=== PATIENT | female | born 1960 | race Caucasian/White ===

== ENCOUNTER 2018-03-12 02:03 | Inpatient (IN) | payer OTHER ==
[~2018-03-12] VITALS: Ht 165.1 cm; Wt 92.1 kg
[~2018-03-12 02:03] MED LIST: CRESTOR20 M2 PO; FLUOXETINE HCL20 M2 PO; LEVOTHYROXINE100 MC1 PO; LEVOTHYROXINE88 MCG PO
--- NOTE | 2018-03-12 12:58 | Admission Core Measures ---
Acute Coronary Syndrome (CM) ACS Core Measures Acute Coronary Syndrome Diagnosis No Congestive Heart Failure (NEW) CHF Core Measures Congestive Heart Failure Diagnosis No Cerebrovascular Accident CVA Core Measures CVA/TIA Diagnosis No Venous Thromboembolism VTE Core Og (View Protocol) VTE Risk Factors Surgery No Mechanical VTE Prophylaxis d/t N/A MechProphylax Ordered No VTE Pharm Prophylaxis d/t NA PharmProphylax ordered Problem List As ranked by this Provider includes Assessment & Plan 1. Unilateral primary osteoarthritis, left hip HOME MEDS Home Med List Fluoxetine HCl 20 MG CAPSULE 1 CAP PO DAILY DEPRESSION (Reported) Levothyroxine Sodium 100 MCG TABLET 1 TAB PO DAILY HYPOTHYROID (Reported) Levothyroxine Sodium 88 MCG TABLET 1 TAB PO DAILY HYPOTHYROID (Reported) Rosuvastatin Calcium (Crestor) 20 MG TABLET 1 TAB PO DAILY CHOLESTEROL ( Reported)
[2018-03-12] MEDS ORDERED: PRILOSEC OTC20 M1 PO (13:00)
[2018-03-12] MEDS ORDERED: ASPIRIN EC81 M1 PO (13:00)
[2018-03-12] MEDS ORDERED: DILAUDID2 M1 PO (13:00)
[2018-03-12] MEDS ORDERED: MIRALAX17 G1 PO (13:00)
[2018-03-12] MEDS ORDERED: COLACE100 M1 PO (13:00)
--- NOTE | 2018-03-12 13:03 | Patient Discharge Instructions ---
Discharge Instructions General Discharge Information You were seen/treated for: Left hip pain related to unilateral primary osteoarthritis You had these procedures: Left total hip replacement Watch for these problems: Increasing pain despite the use of pain medication Increasing redness, warmth or swelling Drainage of any type from incision Inability to bear weight on operative leg Persistent nausea and vomiting Fever greater than 101.5 degrees Do not soak the wound: Yes No bath, but you may shower: Yes Other wound care: Please keep wound clean and dry. No ointments or lotions of any type on or near incision at any time. No exceptions. Your dressing will be changed by your nurse on the second day after your surgery. Daily dry dressing changes are recommended each day thereafter. Do not soak your wound in a bath at any time until otherwise indicated by your surgeon. You may shower, please dry wound immediately after shower with a clean towel. Special Instructions: Aspirin: You are taking this medication to help prevent blood clot formation. Please take with food to protect your stomach lining. Please take as directed. Constipation: Pain medication can cause constipation. Dr. Laird has recommended that you take Colace and miralax each day. You may discontinue this medication if you develop loose stool or diarrhea. If you wish to continue this medication, it is available over the counter. If you are unable to move your bowels after several days, if you are unable to pass gas and are developing bloating, nausea, or vomiting as a result, please contact your doctor. Diet Continue normal diet: Yes Activity Full Activity/No Limits: No Activity Self Limited: Yes Pounds, do NOT lift more than: 10 Activity Limited to: Weight bear as tolerated Acute Coronary Syndrome Inclusion Criteria At DC or during hospital stay patient has or had the following: ACS DIAGNOSIS No Discharge Core Measures Meds if any: Prescribed or Continued at Discharge Meds if any: NOT Prescribed or Continued at Discharge Congestive Heart Failure Inclusion Criteria At DC or during hospital stay patient has or had the following: CHF DIAGNOSIS No Discharge Core Measures Meds if any: Prescribed or Continued at Discharge Meds if any: NOT Prescribed or Continued at Discharge Cerebrovascular accident Inclusion Criteria At DC or during hospital stay patient has or had the following: CVA/TIA Diagnosis No Discharge Core Measures Meds if any: Prescribed or Continued at Discharge Meds if any: NOT Prescribed or Continued at Discharge Venous thromboembolism Inclusion Criteria VTE Diagnosis No VTE Type NONE VTE Confirmed by (Test) NONE Discharge Core Measures - Per Current guidelines, there needs to be overlap - treatment for the first 5 days of Warfarin therapy. - If discharged on Warfarin prior to 5 days of - overlap therapy, the patient will need to be - assessed for post discharge needs including - *Post discharge parental anticoagulation - *Warfarin and/or parental anticoagulation education - *Follow up date to check INR post discharge At least 5 days overlap therapy as Inpatient No Meds if any: Prescribed or Continued at Discharge Note: Overlap Therapy is Warfarin and Anticoagulant Meds if any: NOT Prescribed or Continued at Discharge
--- NOTE | 2018-03-12 13:05 | Surgical Discharge Summary ---
Visit Information Visit Dates Admission Date: 03/12/18 Discharge Date: 03/13/18 History of Present Illness Chief Complaint: Left hip pain related to unilateral primary osteoarthritis Surgical History Pertinent Surgical History: non-contributory Review of Systems: See H&P Hospital Course Course Attending Physician: Rommel Laird MD Primary Care Physician: Unknown Hospital Course: Patient was admitted to the hospital for an elective total joint replacement. The procedure was tolerated well and patient was transferred to a general surgical floor. Diet was advanced and tolerated. The patient was evaluated and treated by physical therapy. At the time of hospital discharge, the vital signs were stable, neurovascular status was intact, and pain was controlled with the use of oral pain medications. Allergies: Coded Allergies: amoxicillin (From AUGMENTIN) (RASH 03/11/18) clavulanic acid (From AUGMENTIN) (RASH 03/11/18) Disposition Summary Disposition Principal Diagnosis: Left hip unilateral primary osteoarthritis Additional Diagnosis: None Discharge Disposition: home health services Discharge Instructions General Discharge Information Code Status: Full Code Patient's Diet: Regular, advance as tolerated Patient's Activity: WBAT Follow-Up Instructions/Appts: Follow up with Dr. Laird in 6 weeks from date of surgery. Please call office to arrange &/or confirm this appointment. Medications at Discharge Discharge Medications: Continue taking these medications: Fluoxetine HCl (Fluoxetine HCl) 20 MG CAPSULE 1 Capsule ORAL DAILY Comments: LAST GIVEN 03/13/18 @ 0900 Levothyroxine Sodium (Levothyroxine Sodium) 100 MCG TABLET 1 Tablet ORAL DAILY Instructions: ALTERNATE WITH 88 MCG Levothyroxine Sodium (Levothyroxine Sodium) 88 MCG TABLET 1 Tablet ORAL DAILY Instructions: ALTERNATE WITH 100 MCG Comments: LAST GIVEN 03/13/18 @ 0900 Rosuvastatin Calcium (Crestor) 20 MG TABLET 1 Tablet ORAL DAILY Start taking the following new medications: Aspirin (Ecotrin*) 81 MG TABLET.DR 1 Tablet ORAL TWICE DAILY Qty = 60 No Refills Comments: LAST GIVEN 03/13/18 @ 0900 Docusate Sodium (Colace) 100 MG CAPSULE 1 Capsule ORAL TWICE DAILY Qty = 14 No Refills Instructions: DISCONTINUE USE IF YOU DEVELOP LOOSE STOOL OR DIARRHEA Comments: LAST GIVEN 03/13/18 @ 0900 Polyethylene Glycol 3350 (Miralax) 17 GRAM POWD.PACK 1 Packet ORAL DAILY Qty = 7 No Refills Instructions: dissolve in water, DISCONTINUE USE IF YOU DEVELOP LOOSE STOOL OR DIARRHEA Comments: LAST GIVEN 03/12/18 @ 1400 Omeprazole Magnesium (Prilosec Otc) 20 MG TABLET.DR 1 Tablet ORAL DAILY Qty = 30 No Refills Comments: LAST GIVEN 03/13/18 @ 0900 Hydromorphone HCl (Dilaudid) 2 MG TABLET 1-2 Tablet ORAL EVERY 4-6 HOURS NEEDED as needed for PAIN Qty = 36 No Refills Comments: NOT GIVEN
--- NOTE | 2018-03-12 15:13 | RADIOLOGY REPORT ---
EXAMINATION: XR HIP, LEFT CLINICAL INFORMATION: Left hip replacement. COMPARISON: None TECHNIQUE: Two views of the left hip. FINDINGS: Status post left hip replacement . Orthopedic components in position. There is air in the soft tissues from recent surgery around the hip. Air-fluid level is seen within the hip joint on the shoot through lateral view. IMPRESSION: Status post left hip replacement.
[2018-03-12 15:45] VITALS: BP 136/72
--- NOTE | 2018-03-12 15:48 | PN- Orthopedic ---
Subjective Subjective: POST-OP NOTE No complaints. Denies pain. Tolerating diet. No nausea. Denies dizziness. No shortness of breath. No chest pains. Ready to get up with PT shortly. Objective Vital Signs and I&Os Intake & Output 03/12 1600 03/12 0800 03/12 0000 03/11 1600 03/11 0800 03/11 0000 Intake Total Output Total Balance Patient 203 lb Weight PACU flowsheet reviewed, vss Physical Exam: General - alert & oriented x 3. comfortable. no acute distress. Lungs - clear bilaterally. no w/r/r. Cardiac - s1s2. reg. Abdomen - soft. nontender. Extremities - warm bilaterally. left hip dressing c/d/i. ice pack in place. no drains. no hematoma. calves soft and nontender b/l. athrombics in place. nvi. Current Medications: Current Medications Sig/Lisbeth Start time Last Medication Dose Route Stop Time Status Admin Acetaminophen 0 .STK-MED ONE 03/12 1046 DC PO Cefazolin Sodium 2,000 MG ONCE 03/12 0000 NR IV 03/12 2359 Oxycodone HCl 0 .STK-MED ONE 03/12 1046 DC PO Assessment/Plan Assessment/Plan This 57 year old female with hx hld, hypothyroidism, depression, who is POD#0 s/ p left total hip replacement for primary osteoarthritis advance diet as tolerated pain medication as ordered maranda-operative ancef x 2 doses asa bid - dvt ppx PT eval, wbat bowel regime ordered home meds ordered f/u AM labs dressing change POD#2 d/c planning will d/w Core Measures Venous Thromboembolism VTE Risk Factors Surgery No Mechanical VTE Prophylaxis d/t N/A MechProphylax Ordered No VTE Pharm Prophylaxis d/t NA PharmProphylax ordered
--- NOTE | 2018-03-12 16:51 | Operative Report ---
Operative/Inv Procedure Report Surgery Date: 03/12/18 Name of Procedure: Left total hip replacement Pre-Operative Diagnosis: Primary left hip DJD Post-Operative Diagnosis: Same Estimated Blood Loss: 250 Surgeon/Bicycle Taxi Driver: Sisi SLOAN,Rommel Sousa Anesthesia: block Operative/Procedure Note Note: Description of Procedure: The patient was taken to the operating room and positively identified. After induction of spinal anesthesia and administration of appropriate pre-operative antibiotics, the patient was positioned supine on the operating room table and all bony prominences were well padded. After performing a surgical timeout, the left lower extremity was prepped and draped in the usual sterile fashion. A direct anterior approach was made to the left hip. The incision was carried sharply through superficial soft tissues to the level of the fascia. Meticulous hemostasis was maintained with Bovie electocautery. The fascia over the tensor fascia renee muscle was opened sharply and the interval between the TFL and the sartorius was entered bluntly taking care to stay lateral to the lateral femoral cutaneous nerve. Retractors were placed around the femoral neck and the pericapsular fat was identified. The ascending branches of the lateral femoral circumflex vessels were identified and carefully coagulated. The pericapsular fat and anterior capsule were then resected. A napkin ring osteotomy was performed and the femoral head was removed without difficulty. Attention was then turned to the acetabulum. After appropriate placement of retractors, the acetabulum was exposed. Soft tissue was cleaned from the acetabular margin and notch. Overhanging osteophytes were removed and the teardrop was exposed. The acetabulum was then sequentially reamed to accept a 54 mm [place] Tritanium hemispherical solid shell. This was impacted into place in the appropriate position and fitted with a 36 mm Trident X3 zero degree polyethylene insert. Attention was then turned to the femur. After performing the appropriate ligament releases, the proximal femur was exposed. It was then sequentially broached to accept a size 3 Nolberto Accolade II stem. This was trialed for leg length and stability. The trial component was removed and the final component was impacted into place. The trunnion was carefully cleaned and fit with a 36 mm, +2.5 Biolox delta ceramic femoral head. The hip was reduced and put through a full range of motion and found to be stable. The articular space was then irrigated with sterile saline. The periarticular soft tissues were infilitrated with Marcaine. The fascial layer was closed with interrupted #1 vicryl suture and the skin was re-approximated with interrupted 2 -0 vicryl. The skin was closed with a running 3-0 V-Lock suture. Steri-strips and a sterile dressing were applied. The patient was awakened and taken to the recovery room in satisfactory condition.
[2018-03-12 19:27] VITALS: BP 132/83
[2018-03-12 22:38] VITALS: BP 133/82
[2018-03-13 04:03] VITALS: BP 125/82
[2018-03-13 06:08] VITALS: BP 122/50
--- NOTE | 2018-03-13 08:03 | PN- Orthopedic ---
Subjective Subjective: Patient in bed with no complaints. Pain under control, not taking any narcotics. Tolerating regular diet with no nausea or vomiting. Was out of bed ambulating with PT yesterday. Denies paresthesias. Denies chest pain, shortness of breath, headache, dizziness. Objective Vital Signs and I&Os Vital Signs Date Time Temp Pulse Resp B/P B/P Pulse O2 O2 Flow FiO2 Mean Ox Delivery Rate 03/13 0608 98.0 53 16 122/50 97 Room Air 03/13 0403 98.4 62 18 125/82 98 Room Air 03/12 2238 98.3 73 20 133/82 96 Room Air 03/12 1927 98.0 76 20 132/83 95 Room Air 03/12 1545 97.8 72 18 136/72 Room Air Intake & Output 03/13 1600 03/13 0800 03/13 0000 03/12 1600 03/12 0800 03/12 0000 Intake Total 800 800 Output Total 2000 2450 Balance -1200 -1650 Intake, IV 600 300 Intake, Oral 200 500 Output, Urine 1999 2450 Patient 203 lb Weight Weight Estimated Measurement Method Physical Exam: Generalno acute distress Respiratoryclear Cardiacregular rate and rhythm Abdomensoft nontender Extremitiesleft thigh is soft, left hip dressing clean and dry. Distal motor and sensory function intact. 2+ DP pulse on left foot. Calves soft nontender Assessment/Plan Assessment/Plan This 57 year old female with hx hld, hypothyroidism, depression, who is POD#1 s/ p left total hip replacement for primary osteoarthritis. Stable Pt lives alone and is concerned about getting on and off the toilet by herself, will ask case management to get a riser for her toilet at home. Regular diet pain medication as ordered maranda-operative ancef x 2 doses asa bid - dvt ppx PT, wbat bowel regime ordered home meds ordered f/u AM labs dressing change POD#2 d/c planning, plan to DC home later today Core Measures Venous Thromboembolism VTE Risk Factors Surgery No Mechanical VTE Prophylaxis d/t N/A MechProphylax Ordered No VTE Pharm Prophylaxis d/t NA PharmProphylax ordered
[2018-03-13 08:30] LABS: ABSOLUTE BASOPHIL COUNT 0 /CUMM (0.0-0.2); ABSOLUTE EOSINOPHIL COUNT 0 /CUMM (0.0-0.7); ABSOLUTE GRANULOCYTE CT 6.7 /CUMM (1.4-6.5); ABSOLUTE LYMPH COUNT 0.6 /CUMM (1.2-3.4); ABSOLUTE MONOCYTE COUNT 0.6 /CUMM (0.10-0.60); BASOPHIL % 0.1 % (0.0-2.0); EOSINOPHIL % 0 % (0-5); GRANULOCYTE % 84.6 % (42.2-75.2); HEMATOCRIT 33.4 % (37-47); MEAN CORPUSCULAR HGB 34.7 PG (27.0-31.0); MEAN CORPUSCULAR HGB CONC 34.8 G/DL (33.0-37.0); MEAN CORPUSCULAR VOLUME 99.8 FL (81.0-99.0); MEAN PLATELET VOLUME 10.4 FL (7.4-10.4); PLATELET COUNT 167 /CUMM (130-400); RBC DISTRIBUTION WIDTH 12.8 % (11.5-14.5); RED BLOOD CELL CT 3.35 /CUMM (4.20-5.40); WHITE BLOOD CELL COUNT 7.9 /CUMM (4.8-10.8)
[2018-03-13 13:34] VITALS: BP 130/78
== END 2018-03-13 17:06 | disposition home health service (06) | DRG 470 ==
LOC: SDA 02:03 → ENRESERV 14:08 → ENTRNSPT 15:15 → EDTRNSPT 15:25 → EDTRNSPTSTS 15:25 → 2NB 15:29 → CMPTRNSPT 15:39 → ENPENDDIS 03-13 08:35 → 2NB 03-13 17:06
PROVIDERS: Nurse Practitioner
PROC: 0SRB04A Replacement of Left Hip Joint with Ceramic on Polyethylene Synthetic Substitute, Uncemented, Open Approach (ICD-10-PCS; principal; 2018-03-12)
DX: M16.12 Unilateral primary osteoarthritis, left hip (principal); E78.5 Hyperlipidemia, unspecified; F32.9 Major depressive disorder, single episode, unspecified; E03.9 Hypothyroidism, unspecified; Z88.1 Allergy status to other antibiotic agents; E55.9 Vitamin D deficiency, unspecified; E53.8 Deficiency of other specified B group vitamins; E66.9 Obesity, unspecified; Z68.33 Body mass index [BMI] 33.0-33.9, adult
CPT/HCPCS: 2NSBP; 36592; 73502-LT; 82436; 97116-GO; 97161-GP; J0131; J0690; J0735; J1100; J2405; J2550; J3490; J7042

== ENCOUNTER 2018-05-19 01:19 | Inpatient (IN) | payer OTHER ==
[~2018-05-19] VITALS: Ht 165.1 cm; Wt 98.4 kg
[~2018-05-19 01:19] MED LIST changes: +ASPIRIN EC81 M1 PO; +COLACE100 M1 PO; +DILAUDID2 M1 PO; +MIRALAX17 G1 PO; +PRILOSEC OTC20 M1 PO; +VITAMIN B-121000 MC3 PO; +VITAMIN D250000 UNIT PO
--- NOTE | 2018-05-19 15:11 | Admission Core Measures ---
Acute Coronary Syndrome (CM) ACS Core Measures Acute Coronary Syndrome Diagnosis No Congestive Heart Failure (NEW) CHF Core Measures Congestive Heart Failure Diagnosis No Cerebrovascular Accident CVA Core Measures CVA/TIA Diagnosis No Venous Thromboembolism VTE Core Og (View Protocol) VTE Risk Factors Surgery No Mechanical VTE Prophylaxis d/t N/A MechProphylax Ordered No VTE Pharm Prophylaxis d/t NA PharmProphylax ordered Problem List As ranked by this Provider includes Assessment & Plan 1. Unilateral primary osteoarthritis, right hip HOME MEDS Home Med List Cyanocobalamin (Vitamin B-12) 1,000 MCG TABLET 1 TAB PO DAILY SUPPLEMENT ( Reported) Ergocalciferol (Vitamin D2) (Vitamin D2) 50,000 UNIT CAPSULE 1 CAP PO QW SUPPLEMENT (Reported) Fluoxetine HCl 20 MG CAPSULE 1 CAP PO DAILY DEPRESSION (Reported) Levothyroxine Sodium 88 MCG TABLET 1 TAB PO DAILY HYPOTHYROID (Reported) Levothyroxine Sodium 100 MCG TABLET 1 TAB PO DAILY HYPOTHYROID (Reported) Rosuvastatin Calcium (Crestor) 20 MG TABLET 1 TAB PO DAILY CHOLESTEROL ( Reported)
[2018-05-19] MEDS ORDERED: MIRALAX17 G1 PO (15:12)
[2018-05-19] MEDS ORDERED: ASPIRIN EC81 M1 PO (15:12)
[2018-05-19] MEDS ORDERED: COLACE100 M1 PO (15:12)
[2018-05-19] MEDS ORDERED: PRILOSEC OTC20 M1 PO (15:12)
[2018-05-19] MEDS ORDERED: DILAUDID2 M1 PO (15:12)
--- NOTE | 2018-05-19 15:15 | Patient Discharge Instructions ---
Discharge Instructions General Discharge Information You were seen/treated for: Right hip pain related to unilateral primary osteoarthritis You had these procedures: Right total hip replacement Watch for these problems: Increasing pain despite the use of pain medication Increasing redness, warmth or swelling Drainage of any type from incision Inability to bear weight on operative leg Persistent nausea and vomiting Fever greater than 101.5 degrees Do not soak the wound: Yes No bath, but you may shower: Yes Other wound care: Please keep wound clean and dry. No ointments or lotions of any type on or near incision at any time. No exceptions. Your dressing will be changed by your nurse on the second day after your surgery. Daily dry dressing changes are recommended each day thereafter. Do not soak your wound in a bath or pool at any time until otherwise indicated by your surgeon. You may shower, please dry wound immediately after shower with a clean towel. Special Instructions: Aspirin: You are taking this medication to help prevent blood clot formation. Please take with food to protect your stomach lining. Please take as directed. Constipation: Pain medication can cause constipation. Your surgeon has recommended that you take Colace and miralax each day. You may discontinue this medication if you develop loose stool or diarrhea. If you wish to continue this medication, it is available over the counter. If you are unable to move your bowels after several days, if you are unable to pass gas and are developing bloating, nausea, or vomiting as a result, please contact your doctor. Diet Continue normal diet: No Recommended Diet: Regular Activity Full Activity/No Limits: No Activity Self Limited: Yes Pounds, do NOT lift more than: 10 Activity Limited to: Weight bear as tolerated Acute Coronary Syndrome Inclusion Criteria At DC or during hospital stay patient has or had the following: ACS DIAGNOSIS No Discharge Core Measures Meds if any: Prescribed or Continued at Discharge Meds if any: NOT Prescribed or Continued at Discharge Congestive Heart Failure Inclusion Criteria At DC or during hospital stay patient has or had the following: CHF DIAGNOSIS No Discharge Core Measures Meds if any: Prescribed or Continued at Discharge Meds if any: NOT Prescribed or Continued at Discharge Cerebrovascular accident Inclusion Criteria At DC or during hospital stay patient has or had the following: CVA/TIA Diagnosis No Discharge Core Measures Meds if any: Prescribed or Continued at Discharge Meds if any: NOT Prescribed or Continued at Discharge Venous thromboembolism Inclusion Criteria VTE Diagnosis No VTE Type NONE VTE Confirmed by (Test) NONE Discharge Core Measures - Per Current guidelines, there needs to be overlap - treatment for the first 5 days of Warfarin therapy. - If discharged on Warfarin prior to 5 days of - overlap therapy, the patient will need to be - assessed for post discharge needs including - *Post discharge parental anticoagulation - *Warfarin and/or parental anticoagulation education - *Follow up date to check INR post discharge At least 5 days overlap therapy as Inpatient No Meds if any: Prescribed or Continued at Discharge Note: Overlap Therapy is Warfarin and Anticoagulant Meds if any: NOT Prescribed or Continued at Discharge
--- NOTE | 2018-05-19 15:17 | Surgical Discharge Summary ---
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 Patient/Self Services at Home: None What is Your Primary Language? Romansh Review of Systems: See H&P Hospital Course Course Attending Physician: Rommel Laird MD Primary Care Physician: Unknown Hospital Course: Patient was admitted to the hospital for an elective total joint replacement. The procedure was tolerated well and patient was transferred to a general surgical floor. Diet was advanced and tolerated. The patient was evaluated and treated by physical therapy. At the time of hospital discharge, the vital signs were stable, neurovascular status was intact, and pain was controlled with the use of oral pain medications. Allergies: Coded Allergies: amoxicillin (From AUGMENTIN) (RASH 05/15/18) clavulanic acid (From AUGMENTIN) (RASH 05/15/18) Disposition Summary Disposition Principal Diagnosis: Right hip unilateral primary osteoarthritis Additional Diagnosis: None Discharge Disposition: home health services Discharge Instructions General Discharge Information Code Status: Full Code Patient's Diet: Regular, advance as tolerated Patient's Activity: WBAT Follow-Up Instructions/Appts: Follow up with Dr. Laird in 6 weeks from date of surgery. Please call office to arrange &/or confirm this appointment. Medications at Discharge Discharge Medications: Continue taking these medications: Fluoxetine HCl (Fluoxetine HCl) 20 MG CAPSULE 1 Capsule ORAL DAILY Comments: LAST GIVEN 03/13/18 @ 0900 Levothyroxine Sodium (Levothyroxine Sodium) 100 MCG TABLET 1 Tablet ORAL DAILY Instructions: ALTERNATE WITH 88 MCG Levothyroxine Sodium (Levothyroxine Sodium) 88 MCG TABLET 1 Tablet ORAL DAILY Instructions: ALTERNATE WITH 100 MCG Comments: LAST GIVEN 03/13/18 @ 0900 Rosuvastatin Calcium (Crestor) 20 MG TABLET 1 Tablet ORAL DAILY Cyanocobalamin (Vitamin B-12) 1,000 MCG TABLET 1 Tablet ORAL DAILY Ergocalciferol (Vitamin D2) (Vitamin D2) 50,000 UNIT CAPSULE 1 Capsule ORAL Once a Week Start taking the following new medications: Aspirin (Ecotrin*) 81 MG TABLET.DR 1 Tablet ORAL TWICE DAILY Qty = 60 No Refills Docusate Sodium (Colace) 100 MG CAPSULE 1 Capsule ORAL TWICE DAILY Qty = 14 No Refills Instructions: DISCONTINUE USE IF YOU DEVELOP LOOSE STOOL OR DIARRHEA Polyethylene Glycol 3350 (Miralax) 17 GRAM POWD.PACK 1 Packet ORAL DAILY Qty = 7 No Refills Instructions: dissolve in water, DISCONTINUE USE IF YOU DEVELOP LOOSE STOOL OR DIARRHEA Omeprazole Magnesium (Prilosec Otc) 20 MG TABLET.DR 1 Tablet ORAL DAILY Qty = 30 No Refills Hydromorphone HCl (Dilaudid) 2 MG TABLET 1-2 Tablet ORAL EVERY 4-6 HOURS NEEDED as needed for PAIN Qty = 36 No Refills Acetaminophen (Tylenol Extra Strength) 500 MG TABLET 2 Tablet ORAL Every 6-8 Hours Qty = 60 No Refills
--- NOTE | 2018-05-19 15:58 | RADIOLOGY REPORT ---
Indication: Status post right hip EXAMINATION: 3 views of the right hip. FINDINGS: No films to compare Lateral film is suboptimal this is likely due to patient body habitus. Frontal film shows 2 part prosthesis. Good visual result on this single image. IMPRESSION: Limited due to patient body habitus. The frontal film is showing no suspicious finding. 2 part prosthesis. Good visual result
--- NOTE | 2018-05-19 16:55 | PN- Orthopedic ---
Subjective Subjective: Patient comfortable without complaints, starting to feel sensation in her lower extemities. She is hungry eating crackers without nausea Objective Vital Signs and I&Os VSS afebrile chest - CTA symmetric heart -RRR without MRG abd -soft without distention, NT right hip -dressings CDI, no edema calves soft bilaterally, sensory and motor returning feet warm with good perfusion Current Medications: Current Medications Sig/Lisbeth Start time Last Medication Dose Route Stop Time Status Admin Acetaminophen 0 .STK-MED ONE 05/19 1120 DC PO Acetaminophen 975 MG ONCE 05/19 0000 AC PO 05/19 2359 Cefazolin Sodium 2,000 MG ONCE 05/19 0000 NR IV 05/19 2359 Midazolam HCl 0 .STK-MED ONE 05/19 1137 DC .ROUTE Oxycodone HCl 0 .STK-MED ONE 05/19 1120 DC PO Oxycodone HCl 10 MG ONCE 05/19 0000 AC PO 05/19 2359 Tranexamic Acid 0 .STK-MED ONE 05/19 1137 DC IV Assessment/Plan Assessment/Plan 57 y/o female postop right total hip arthroplasty with PMHx sig for HLD, depression and hypothyroidism doing well postop without complaints Plan - PT to see WBAT DVT prop - Alps and ASA81 BID D/C planning for tomorrow if stable Core Measures Venous Thromboembolism VTE Risk Factors Surgery No Mechanical VTE Prophylaxis d/t N/A MechProphylax Ordered No VTE Pharm Prophylaxis d/t NA PharmProphylax ordered
[2018-05-19 17:39] VITALS: BP 122/82
--- NOTE | 2018-05-19 17:55 | Operative Report ---
Operative/Inv Procedure Report Surgery Date: 05/19/18 Name of Procedure: Right total hip replacement Pre-Operative Diagnosis: Primary right hip DJD Post-Operative Diagnosis: Same Estimated Blood Loss: 250 Surgeon/Death Claim Examiner: Sisi SLOAN,Rommel Sousa Anesthesia: block Operative/Procedure Note Note: Description of Procedure: The patient was taken to the operating room and positively identified. After induction of spinal anesthesia and administration of appropriate pre-operative antibiotics, the patient was positioned supine on the operating room table and all bony prominences were well padded. After performing a surgical timeout, the right lower extremity was prepped and draped in the usual sterile fashion. A direct anterior approach was made to the right hip. The incision was carried sharply through superficial soft tissues to the level of the fascia. Meticulous hemostasis was maintained with Bovie electocautery. The fascia over the tensor fascia renee muscle was opened sharply and the interval between the TFL and the sartorius was entered bluntly taking care to stay lateral to the lateral femoral cutaneous nerve. Retractors were placed around the femoral neck and the pericapsular fat was identified. The ascending branches of the lateral femoral circumflex vessels were identified and carefully coagulated. The pericapsular fat and anterior capsule were then resected. A napkin ring osteotomy was performed and the femoral head was removed without difficulty. Attention was then turned to the acetabulum. After appropriate placement of retractors, the acetabulum was exposed. Soft tissue was cleaned from the acetabular margin and notch. Overhanging osteophytes were removed and the teardrop was exposed. The acetabulum was then sequentially reamed to accept a 54 mm Nolberto Tritanium hemispherical solid shell. This was impacted into place in the appropriate position and fitted with a 36 mm Trident X3 zero degree polyethylene insert. Attention was then turned to the femur. After performing the appropriate ligament releases, the proximal femur was exposed. It was then sequentially broached to accept a size 3 Nolberto Accolade 2 stem. This was trialed for leg length and stability. The trial component was removed and the final component was impacted into place. The trunnion was carefully cleaned and fit with a 36 mm, +5 Biolox delta ceramic femoral head. The hip was reduced and put through a full range of motion and found to be stable. The articular space was then irrigated with sterile saline. The periarticular soft tissues were infilitrated with Marcaine. The fascial layer was closed with interrupted #1 vicryl suture and the skin was re-approximated with interrupted 2 -0 vicryl. The skin was closed with a running 3-0 V-Lock suture. Steri-strips and a sterile dressing were applied. The patient was awakened and taken to the recovery room in satisfactory condition.
[2018-05-19 19:30] VITALS: BP 120/80
[2018-05-19 21:00] VITALS: BP 120/82
[2018-05-19 23:05] VITALS: BP 124/74
[2018-05-20 01:56] VITALS: BP 118/70
[2018-05-20 06:00] VITALS: BP 126/78
--- NOTE | 2018-05-20 07:24 | PN- Orthopedic ---
Subjective Subjective: Patient doing fairly well this am. Having more pain on the right side compared to when she had her left side done two months ago. Has not ambulated yet, due to see PT. Tolerating PO intake. No other issues or complaints. No other concerns per nursing. Objective Vital Signs and I&Os Vital Signs Date Time Temp Pulse Resp B/P B/P Pulse O2 O2 Flow FiO2 Mean Ox Delivery Rate 05/20 0600 98.3 74 18 126/78 97 Room Air 05/20 0156 99.1 67 18 118/70 96 Room Air 05/19 2305 99.0 74 16 124/74 96 05/19 2100 98.5 77 12 120/82 94 05/19 1930 98.2 74 12 120/80 96 05/19 1739 97.8 87 18 122/82 94 Room Air Intake & Output 05/20 0800 05/20 0000 05/19 1600 05/19 0800 05/19 0000 05/18 1600 Intake Total 840 1150 Output Total 500 600 Balance 340 550 Intake, IV 600 450 Intake, Oral 240 700 Output, Urine 500 600 Patient 205 lb Weight Physical Exam: General: A, A, NAD Extremities: Right Hip dsg is c/d/i with no surrounding edema, erythema, ecchymosis or signs of hematoma or seroma, neurovascular intact, no clubbing, cyanosis or edema Current Medications: Current Medications Sig/Lisbeth Start time Last Medication Dose Route Stop Time Status Admin Acetaminophen 1,000 MG Q6 05/19 1800 AC 05/20 IV 05/20 1201 0530 Acetaminophen 0 .STK-MED ONE 05/19 1729 DC IV Acetaminophen 0 .STK-MED ONE 05/19 1120 DC PO Acetaminophen 975 MG ONCE 05/19 0000 DC PO 05/19 2359 Aspirin Buffered 81 MG BID 05/19 2100 AC 05/19 PO 2043 Atorvastatin Calcium 40 MG 1700 05/19 1700 AC 05/19 PO 2042 Cefazolin Sodium 2 GM Q8H 05/20 0500 DC 05/20 N/A 1 UNIT IV 05/20 0529 0433 Cefazolin Sodium 2 GM IQ8 05/19 1600 DC 05/19 N/A 1 UNIT IV 05/20 0029 2042 Cefazolin Sodium 2,000 MG ONCE 05/19 0000 DC IV 05/19 2359 Dextrose/Sodium 1,000 ML .[id number] 05/19 1730 AC 05/20 Chloride IV 0530 Docusate Sodium 100 MG BID 05/19 2100 AC 05/19 PO 2042 Fluoxetine HCl 20 MG DAILY 05/20 0900 AC PO Hydromorphone HCl 2 MG Q4P PRN 05/19 1730 AC 05/20 PO 0438 Hydromorphone HCl 4 MG Q4P PRN 05/19 1730 AC 05/20 PO 0058 Hydromorphone HCl 0 .STK-MED ONE 05/19 1653 DC .ROUTE Levothyroxine Sodium 0.088 MG Q48@0700 05/21 0700 AC PO Levothyroxine Sodium 0.1 MG Q48@0700 05/20 0700 AC 05/20 PO 0530 Midazolam HCl 0 .STK-MED ONE 05/19 1137 DC .ROUTE Morphine Sulfate 2 MG Q2P PRN 05/19 1730 AC 05/20 IV 0654 Omeprazole 40 MG DAILY AC 05/20 0700 CAN PO Omeprazole 40 MG DAILY AC 05/20 0700 AC 05/20 PO 0530 Ondansetron HCl 4 MG Q6P PRN 05/19 1730 AC IV Oxycodone HCl 0 .STK-MED ONE 05/19 1120 DC PO Oxycodone HCl 10 MG ONCE 05/19 0000 DC PO 05/19 2359 Polyethylene Glycol 17 GM DAILY 05/20 0900 AC PO Promethazine HCl 12.5 MG Q6P PRN 05/19 1730 AC IV 05/26 1514 Tranexamic Acid 0 .STK-MED ONE 05/19 1137 DC IV Results Last 48 Hours of Labs: Laboratory Tests 05/20 0625 Chemistry Sodium Pending Potassium Pending Chloride Pending Carbon Dioxide Pending Anion Gap Pending BUN Pending Creatinine Pending BUN/Creatinine Ratio Pending Hematology CBC w Diff Pending WBC Pending RBC Pending Hgb Pending Hct Pending MCV Pending MCH Pending MCHC Pending RDW Pending Plt Count Pending MPV Pending Assessment/Plan Assessment/Plan This is a 57 y/o female with a PMHx of depression, hyperlipidemia and hypothyroidism who is POD #1 s/p right total hip arthroplasty Regular Diet PO pain meds, home meds PT to see, Ambulate/WBAT DVT Px; Alps and ASA81 BID D/C planning possibly for this PM, needs home PT/VNA Will d/w attending Problem List: 1. Unilateral primary osteoarthritis, right hip Core Measures Venous Thromboembolism VTE Risk Factors Surgery No Mechanical VTE Prophylaxis d/t N/A MechProphylax Ordered No VTE Pharm Prophylaxis d/t NA PharmProphylax ordered
[2018-05-20 09:18] LABS: ABSOLUTE BASOPHIL COUNT 0 /CUMM (0.0-0.2); ABSOLUTE EOSINOPHIL COUNT 0 /CUMM (0.0-0.7); ABSOLUTE GRANULOCYTE CT 5.4 /CUMM (1.4-6.5); ABSOLUTE LYMPH COUNT 0.8 /CUMM (1.2-3.4); ABSOLUTE MONOCYTE COUNT 0.5 /CUMM (0.10-0.60); BASOPHIL % 0.6 % (0.0-2.0); EOSINOPHIL % 0.1 % (0-5); MEAN CORPUSCULAR HGB 34.7 PG (27.0-31.0); MEAN CORPUSCULAR HGB CONC 34.7 G/DL (33.0-37.0); MEAN CORPUSCULAR VOLUME 99.7 FL (81.0-99.0); MEAN PLATELET VOLUME 9.9 FL (7.4-10.4); PLATELET COUNT 160 /CUMM (130-400); RBC DISTRIBUTION WIDTH 12.8 % (11.5-14.5); RED BLOOD CELL CT 3.41 /CUMM (4.20-5.40); WHITE BLOOD CELL COUNT 6.7 /CUMM (4.8-10.8)
[2018-05-20 10:24] VITALS: BP 110/60
[2018-05-20 14:14] VITALS: BP 120/60
[2018-05-20 17:52] VITALS: BP 118/70
[2018-05-20 21:44] VITALS: BP 116/78
[2018-05-21 02:03] VITALS: BP 122/82
[2018-05-21 05:56] VITALS: BP 126/70
[2018-05-21] MEDS ORDERED: TYLENOL EXTRA500 M2 PO (06:54)
--- NOTE | 2018-05-21 06:58 | PN- Orthopedic ---
Subjective Subjective: POD#2 S/P RIGHT IDANIA NO MAJOR ISSUES OVENIGHT NO COMPLAINTS NOW DENIES CP, SOB, TOLERATING DIET AMBULAITNG WELL WITH PT Objective Vital Signs and I&Os Vital Signs Date Time Temp Pulse Resp B/P B/P Pulse O2 O2 Flow FiO2 Mean Ox Delivery Rate 05/21 0556 98.1 86 20 126/70 94 Room Air 05/21 0203 99.5 79 20 122/82 95 Room Air 05/20 2144 97.8 72 20 116/78 95 05/20 1752 99.4 81 20 118/70 93 05/20 1434 Room Air Room Air 05/20 1414 98.2 76 20 120/60 96 Room Air 05/20 1024 98.2 76 20 110/60 97 Room Air Intake & Output 05/21 0805/21 0000 05/20 1600 05/20 0000 05/19 1600 Intake Total 400 240 207 383 1395 Output Total 400 250 200 500 600 Balance 0 -10 650 340 550 Intake, IV 250 600 450 Intake, Oral 400 240 600 240 700 Number 0 Bowel Movements Output, Urine 400 250 200 500 600 Patient 217 lb 205 lb Weight Physical Exam: CV: RRR LUNGS: CLEAR ABD; SOFT, +BS EXT: DRSG CHANGED, WOUND C/D/I THIGH SOFT NO CLAF TENDERNESS BILAT, DISTAL CMS INTACT Assessment/Plan Assessment/Plan ORTHO STABLE PLAN OOB WITH PT/STAIRS HOME D/C LATER TODAY Core Measures Venous Thromboembolism VTE Risk Factors Surgery No Mechanical VTE Prophylaxis d/t N/A MechProphylax Ordered No VTE Pharm Prophylaxis d/t NA PharmProphylax ordered
[2018-05-21 15:07] VITALS: BP 132/76
[2018-05-21] MEDS ORDERED: ULTRAM50 M1 PO (16:03)
== END 2018-05-21 20:44 | disposition home health service (06) | DRG 470 ==
LOC: SDA 01:19 → ENRESERV 16:13 → ENTRNSPT 17:02 → EDTRNSPTSTS 17:13 → EDTRNSPT 17:13 → 2NA 17:15 → CMPTRNSPT 17:18 → ENPENDDIS 05-21 07:25 → 2NA 05-21 20:44
PROVIDERS: Nurse Practitioner
PROC: 0SR904A Replacement of Right Hip Joint with Ceramic on Polyethylene Synthetic Substitute, Uncemented, Open Approach (ICD-10-PCS; principal; 2018-05-19)
DX: M16.11 Unilateral primary osteoarthritis, right hip (principal); F32.9 Major depressive disorder, single episode, unspecified; E78.5 Hyperlipidemia, unspecified; E03.9 Hypothyroidism, unspecified; Z96.642 Presence of left artificial hip joint; E66.9 Obesity, unspecified; Z68.33 Body mass index [BMI] 33.0-33.9, adult; E53.8 Deficiency of other specified B group vitamins; E55.9 Vitamin D deficiency, unspecified
CPT/HCPCS: 2NASP; 36592; 73502-RT; 82436; 97110-GO; 97116-GO; 97161-GP; 97530-GO; J0131; J0690; J0735; J2550; J7042